=== PATIENT | female | born 1960 | race African-American/Black ===

== ENCOUNTER 2018-02-03 05:58 | Day surgery (SDC) | payer MEDICAID, MEDICARE ==
--- NOTE | 2018-02-02 09:16 | Pre-Procedure Note/Attestation ---
Pre-Procedure Note/Attestation Complete Prior to Procedure Planned Procedure: right Procedure Narrative: phaco with IOL Indications for Procedure Pre-Operative Diagnosis: cataract Attestation I attest that I discussed the nature of the procedure; its benefits; risks and complications; and alternatives (and the risks and benefits of such alternatives ), prior to the procedure, with the patient (or the patient's legal human resources hr representative). I attest that, if there was a reasonable possibility of needing a blood transfusion, the patient (or the patient's legal human resources hr representative) was given the [facility] standardized written summary, pursuant to the [place] Blood Safety Act ([place] Health and Safety Code # 1645, as amended). I attest that I re-evaluated the patient just prior to the surgery and that there has been no change in the patient's H&P, except as documented below: COREY CUELLAR February 02, 2018 09:16
--- NOTE | 2018-02-02 09:18 | Opthalmology H&P ---
Ophthalmology H&P H&P Chief Complaint: decreased vision in right eye HPI Vision Affects Ability to: read, focus/use eyes together, manage personal affairs HPI Narrative blurry vision Exam Visual Acuity: OD: CF OS: 20/50 Tension: OD: 14 OS: 14 Eye Exam: normal OU: external exam, palpebral fissure-width, marginal reflex distance, levator function, corneas, anterior chambers, fundus exam; findings: lens - OD: PSC OS: PSC Assessment/Plan Diagnosis: (1) Posterior subcapsular age-related cataract of right eye Treatment Plan: cataract extraction w/ lens implant Goals of Treatment: improvement of vision, enhance quality of life Attestation Attestation The risks and benefits of the surgery as well as alternative procedures were explained to the patient in detail. COREY CUELLAR February 02, 2018 09:18
[~2018-02-03] VITALS: Ht 167.6 cm; Wt 89.8 kg
[2018-02-03] VITALS (8 sets, daily range): BP systolic 120–135; BP diastolic 69–94
[~2018-02-03 05:58] MED LIST: HYDROCHLOROTHIA25 MG ORAL; MYCOPHENOLATE250 MG PO; QVAR7.3 G2 IH; VENTOLIN HFA18 GM INH
[2018-02-03] MEDS ORDERED: Maxitrol Opth Oint 3.5gm ONE (06:00)
[2018-02-03] MEDS ORDERED: Dexamethasone 4mg/ml vial ONE (06:00)
[2018-02-03] MEDS ORDERED: Pred Forte 1% Opth Susp 1ml ONE (06:00)
[2018-02-03] MEDS ORDERED: Akten 3.5% 1ml Btl RIGHT EYE ONE (07:00)
[2018-02-03] MEDS ORDERED: Proparacaine 0.5% Opth Soln 15ml RIGHT EYE SCH (07:00)
[2018-02-03] MEDS ORDERED: Tetracaine 0.5% Opth 4ml Soln RIGHT EYE SCH (07:00)
[2018-02-03] MEDS: Phenylephrine 10% Opth Soln 5ml RIGHT EYE SCH ×3 (07:27→07:40)
[2018-02-03] MEDS: Tobramycin Op Soln 0.3% 5ml RIGHT EYE SCH ×2 (07:28→07:36)
[2018-02-03] MEDS: Diclofenac Sod 0.1% Op Soln RIGHT EYE SCH ×3 (07:28→07:40)
[2018-02-03] MEDS: Tropicamide 1% Opth 15ml Soln RIGHT EYE SCH ×3 (07:28→07:39)
[2018-02-03] MEDS: Cyclopentolate 1% Opth Sol 2ml RIGHT EYE SCH ×3 (07:29→07:39)
[2018-02-03] MEDS ORDERED: NS Irrig 1000ml ONE (07:30)
[2018-02-03] MEDS ORDERED: LR 1000ml ONE (07:30)
[2018-02-03] MEDS ORDERED: Sterile Water Irrig 1000ml IRRIG ONE (07:30)
--- NOTE | 2018-02-03 07:38 | Anethesia Preoperative Eval ---
Anesthesia Pre-op PMH/ROS General Date of Evaluation: February 03, 2018 Time of Evaluation: 07:20 Anesthesiologist: ASA Score: ASA 2 Mallampati Score Class I : Soft palate, uvula, fauces, pillars visible Class II: Soft palate, uvula, fauces visible Class III: Soft palate, base of uvula visible Class IV: Only hard plate visible Mallampati Classification: Class II Surgeon: dailson Diagnosis: cataract Surgical Procedure: cataract extraction iol implant right eye Anesthesia History: none Family History: no anesthesia problems Allergies: Coded Allergies: No Known Allergies (Unverified , 02/02/18) Medications: see eMAR Past Medical History Cardiovascular: Reports: HTN Pulmonary: Denies: asthma, COPD, JAYLA, other Gastrointestinal/Genitourinary: Denies: GERD, CRI, ESRD, other Neurologic/Psychiatric: Denies: dementia, CVA, depression/anxiety, TIA, other Endocrine: Denies: DM, hypothyroidism, steroids, other HEENT: Reports: cataract (R) Hematology/Immune: Denies: anemia, DVT, bleeding disorder, other Musculoskeletal/Integumentary: Denies: OA, RA, DJD, DDD, edema, other PSxH Narrative: left mastectomy, orif left wrist Anesthesia Pre-op Phys. Exam Physician Exam Constitutional: NAD Cardiovascular: RRR Respiratory: CTA Gastrointestinal: S/NT/ND Airway Exam Mallampati Score: Class II MO: full ROM: full Teeth: other - crown Dentures: no upper, no lower Anesthesia Pre-op A/P Risk Assessment & Plan Assessment: ASA 2, okay to proceed Plan: MAC Status Change Before Surgery: No Pre-Antibiotics Drug: none Page Olivares M.D. February 03, 2018 07:38
[2018-02-03] MEDS ORDERED: Midazolam 2mg/2ml Inj ONE (07:48)
[2018-02-03] MEDS ORDERED: LR 1000ml 1,000 ML IVLG SCH (08:05)
[2018-02-03] MEDS ORDERED: EPINEPHrine 1mg/1ml Amp ONE (08:08)
[2018-02-03] MEDS ORDERED: Pilocarpine 2% Opth 15ml Soln ONE (08:08)
[2018-02-03] MEDS ORDERED: Povidone-Iodine 5% opth solution ONE (08:09)
[2018-02-03] MEDS ORDERED: Sodium Hyaluronate 14 mg/ml 0.85ml ONE (08:09)
[2018-02-03] MEDS ORDERED: BSS 500ml btl ONE (08:09)
[2018-02-03] MEDS ORDERED: BSS 15ml BTL ONE (08:09)
[2018-02-03] MEDS ORDERED: fentaNYL 100 mcg/2 mL IV PRN (08:15)
[2018-02-03] MEDS ORDERED: DiphenhydrAMINE 50mg/ml Inj IVP PRN (08:15)
--- NOTE | 2018-02-03 08:31 | Immediate Post-Op Evaluation ---
Immediate Post-Op Evalulation Immediate Post-Op Evalulation Procedure: cataract extraction iol implant right eye Date of Evaluation: February 03, 2018 Time of Evaluation: 08:20 IV Fluids: LR 50ml Blood Products: 0 Estimated Blood Loss: 0 Urinary Output: 0 Blood Pressure Systolic: 131 Blood Pressure Diastolic: 93 Pulse Rate: 81 Respiratory Rate: 18 O2 Sat by Pulse Oximetry: 97 Temperature (Fahrenheit): 99 Pain Score (1-10): 0 Nausea: No Vomiting: No Complications none Patient Status: awake, patent, none Hydration Status: adequate Drug: none Page Olivares M.D. February 03, 2018 08:31
--- NOTE | 2018-02-03 08:37 | 48 Hour Post Anesthesia Eval ---
Post Anesthesia Evaluation Procedure: cataract extraction iol implant right eye Date of Evaluation: February 03, 2018 Time of Evaluation: 08:30 Blood Pressure Systolic: 128 0: 91 Pulse Rate: 74 Respiratory Rate: 16 Temperature (Fahrenheit): 99 O2 Sat by Pulse Oximetry: 94 Airway: patent Nausea: No Vomiting: No If pain is > 6 Comment: 0 Hydration Status: adequate Mental Status/LOC: patient returned to baseline Post-Anesthesia Complications: none Follow-up care needed: ready to discharge Page Olivares M.D. February 03, 2018 08:37
--- NOTE | 2018-02-04 11:15 | Brief Operative Note ---
Immediate Post Operative Note Operative Note Chief Complaint: blurry vision Pre-op Diagnosis: cataract, OD Procedure: Phaco with IOL, OD Post-op Diagnosis: Pseudophakia Post-op Diagnosis: same as pre-op Findings: consistent w/pre-op dx studies Surgeon: Stephanie Anesthesiologist: Anesthesia: MAC Specimen: none Complications: none Fluids: LR Estimated Blood Loss: none Drains: none Implant(s) used?: Yes COREY CUELLAR February 04, 2018 11:15
--- NOTE | 2018-02-04 11:16 | Operative Note - PDOC ---
Operative Note Operative Note Date of Operation/Procedure: February 03, 2018 Chief Complaint: blurry vision Pre-op Diagnosis: cataract, OD Procedure: Phaco with IOL, OD Post-op Diagnosis: Pseudophakia Post-op Diagnosis: same as pre-op Operative Findings: consistent w/pre-op dx studies Surgeon: Stephanie Anesthesiologist: Anesthesia: MAC Specimen: none Complications: none Fluids: LR Estimated Blood Loss: none Drains: none Implant(s) used?: Yes Indications for Procedure cataract Description of Procedure This patient has been complaining visually significant cataract in the affected eye with the best corrected visual acuity under moderate glare conditions worse. The patient complains of difficulties with glare in performing activities of daily living and wants to manage personal affairs with comfort and accuracy and see well enough to move with safety at home and outdoors. The risks, benefits and alternatives of the procedure were discussed with the patient in the office prior to scheduling surgery. All questions from the patient were answered after the surgical procedure was explained in detail. The risks of the procedure as explained to the patient include, but are not limited to, pain, infection, bleeding, loss of vision, retinal detachment, need for further surgery, loss of lens nucleus, double vision, etc. Alternative procedures were discussed which include, to do nothing or seek a second opinion. Informed consent for this procedure was obtained from the patient. The patient was referred to a primary care physician for a cardiopulmonary clearance prior to surgery, after proper evaluation was done patient was properly scheduled for outpatient surgery. The patient was brought to the operating room where the anesthesiologist established I.V. lines and cardiac monitoring leads. Mild intravenous sedation was administered. The patient was then prepared with a 5% solution of povidone -iodine to the conjunctival fornix and lashes, and a 5% solution of povidone- iodine to the lids and periorbital skin. The patient was then draped in the usual sterile fashion. A lid speculum was then placed in the operative eye. A keratome blade was then used to create a biplanar incision into the anterior chamber. Viscoelastics was then instilled into the anterior chamber. A capsulorrhexis was then fashioned with an utrata forceps. The lens nucleus was hydrodissected and hydrodelineated with a G 27 Cannula. Paracentesis incision was made at 3 o'clock with sharp blade. The phacoemulsification unit, after being properly adjusted and tested, was then used to emulsify the nucleus followed by aspiration and irrigation of residual cortical material with the I AND A unit.. Healon was then instilled into the anterior chamber. The corneal wound was then enlarged to the size of the optic with the manan keratome blade. The intraocular lens was then inspected for right power and size and thought to be satisfactory. Then the lens was gently placed in the capsular bag. Positioning within the capsular bag was confirmed by direct visualization. Optic centration was accomplished with a Sinskey hook. Viscoelastics was removed from the anterior chamber using the irrigation and aspiration unit. The corneal wound was then tested for leaks and none were found. The lid speculum were then removed. Sponge and needle counts were correct. An eye patch and shield were placed over the operative eye. The patient was taken to the recovery room in stable condition. There were no complications. The patient tolerated the procedure well. The patient was then transferred to the ambulatory surgery unit in stable and satisfactory condition , was given detailed written instructions and asked to follow up in the office the next day. COREY CUELLAR February 04, 2018 11:16
== END 2018-02-03 10:10 | disposition home or self-care (01) ==
LOC: SUR 05:58
DX: H25.041 Posterior subcapsular polar age-related cataract, right eye (principal); I10 Essential (primary) hypertension; J84.9 Interstitial pulmonary disease, unspecified; I70.0 Atherosclerosis of aorta; M19.90 Unspecified osteoarthritis, unspecified site; Z82.49 Family history of ischemic heart disease and other diseases of the circulatory system; Z80.9 Family history of malignant neoplasm, unspecified; Z90.12 Acquired absence of left breast and nipple
CPT/HCPCS: 66984; J0171; J1100; J3370; J7120; V2632; Z7512; 94003; 94150; J2250

== ENCOUNTER 2018-05-12 05:36 | Day surgery (SDC) | payer MEDICAID ==
--- NOTE | 2018-05-09 15:13 | Pre-Procedure Note/Attestation ---
Pre-Procedure Note/Attestation Complete Prior to Procedure Planned Procedure: left Procedure Narrative: phaco with IOL Indications for Procedure Pre-Operative Diagnosis: cataract Attestation I attest that I discussed the nature of the procedure; its benefits; risks and complications; and alternatives (and the risks and benefits of such alternatives ), prior to the procedure, with the patient (or the patient's legal specialty sales representative). I attest that, if there was a reasonable possibility of needing a blood transfusion, the patient (or the patient's legal specialty sales representative) was given the [facility] standardized written summary, pursuant to the [place] Blood Safety Act ([place] Health and Safety Code # 1645, as amended). I attest that I re-evaluated the patient just prior to the surgery and that there has been no change in the patient's H&P, except as documented below: COREY CUELLAR May 09, 2018 15:13
--- NOTE | 2018-05-09 15:15 | Opthalmology H&P ---
Ophthalmology H&P H&P Chief Complaint: decreased vision in left eye HPI Vision Affects Ability to: read, focus/use eyes together, manage personal affairs HPI Narrative blurry vision Exam Visual Acuity: OD: 20/20 os:20/80 Tension: od: 16 os: 17 Eye Exam: normal OU: external exam, palpebral fissure-width, marginal reflex distance, levator function, corneas, anterior chambers, fundus exam; findings: lens - od: iol os: PSC Assessment/Plan Diagnosis: (1) Posterior subcapsular age-related cataract of left eye Treatment Plan: cataract extraction w/ lens implant Goals of Treatment: improvement of vision, enhance quality of life Attestation Attestation The risks and benefits of the surgery as well as alternative procedures were explained to the patient in detail. COREY CUELLAR May 09, 2018 15:15
[~2018-05-12] VITALS: Ht 167.6 cm; Wt 86.2 kg
[2018-05-12] VITALS (7 sets, daily range): BP systolic 103–129; BP diastolic 62–88
[2018-05-12] MEDS: Tobramycin Op Soln 0.3% 5ml LEFT EYE SCH ×3 (06:25→06:42)
[2018-05-12] MEDS: Cyclopentolate 1% Opth Sol 2ml LEFT EYE SCH ×3 (06:25→06:42)
[2018-05-12] MEDS: Diclofenac Sod 0.1% Op Soln LEFT EYE SCH ×3 (06:25→06:42)
[2018-05-12] MEDS: Tropicamide 1% Opth 15ml Soln LEFT EYE SCH ×3 (06:25→06:42)
[2018-05-12] MEDS: Phenylephrine 10% Opth Soln 5ml LEFT EYE SCH ×2 (06:34→06:42)
[2018-05-12] MEDS ORDERED: Pilocarpine 2% Opth 15ml Soln ONE (07:00)
[2018-05-12] MEDS ORDERED: Tetracaine 0.5% Opth 4ml Soln LEFT EYE ONE (07:00)
[2018-05-12] MEDS ORDERED: Maxitrol Opth Oint 3.5gm ONE (07:00)
[2018-05-12] MEDS ORDERED: Povidone-Iodine 5% opth solution ONE ×2 (07:00→07:35)
[2018-05-12] MEDS ORDERED: Proparacaine 0.5% Opth Soln 15ml LEFT EYE ONE (07:00)
[2018-05-12] MEDS ORDERED: Dexamethasone 4mg/ml vial ONE (07:00)
[2018-05-12] MEDS ORDERED: Pred Forte 1% Opth Susp 1ml ONE (07:00)
[2018-05-12] MEDS ORDERED: Akten 3.5% 1ml Btl LEFT EYE ONE (07:00)
[2018-05-12] MEDS ORDERED: EPINEPHrine 1mg/1ml Amp ONE (07:34)
[2018-05-12] MEDS ORDERED: Carbachol 0.01% Op Soln 1.5ml vial ONE (07:34)
[2018-05-12] MEDS ORDERED: Lidocaine 2% MPF 5ml Vial INJ ONE ×2 (07:34→07:37)
[2018-05-12] MEDS ORDERED: acetaZOLAMIDE 500mg Inj ONE (07:34)
[2018-05-12] MEDS ORDERED: Sodium Hyaluronate 14 mg/ml 0.85ml ONE (07:35)
[2018-05-12] MEDS ORDERED: BSS 500ml btl ONE (07:35)
[2018-05-12] MEDS ORDERED: BSS 15ml BTL ONE (07:35)
[2018-05-12] MEDS ORDERED: LR 1000ml ONE (07:45)
[2018-05-12] MEDS ORDERED: Propofol 200mg/20ml IV ONE (07:49)
[2018-05-12] MEDS ORDERED: Lidocaine 1% MPF 10mg/ml 5ml ONE (07:49)
[2018-05-12] MEDS ORDERED: Midazolam 2mg/2ml Inj ONE (07:49)
--- NOTE | 2018-05-12 07:57 | Anethesia Preoperative Eval ---
Anesthesia Pre-op PMH/ROS General Date of Evaluation: May 12, 2018 Time of Evaluation: 07:30 Anesthesiologist: Yumiko ASA Score: ASA 3 Mallampati Score Class I : Soft palate, uvula, fauces, pillars visible Class II: Soft palate, uvula, fauces visible Class III: Soft palate, base of uvula visible Class IV: Only hard plate visible Mallampati Classification: Class II Surgeon: Stephanie Diagnosis: cataract Surgical Procedure: cataract extraction IOL implantation Anesthesia History: none Social History: current smoker Family History: no anesthesia problems Allergies: Coded Allergies: No Known Allergies (Unverified , 02/02/18) Medications: see eMAR Past Medical History Cardiovascular: Reports: HTN Pulmonary: Reports: other - smoking Endocrine: Reports: DM HEENT: Reports: cataract (L) Other: obesity Anesthesia Pre-op Phys. Exam Physician Exam Last Vital Signs Date Time Temp Pulse Resp B/P (MAP) Pulse Ox O2 Delivery O2 Flow Rate FiO2 05/12/18 06:33 97.5 66 16 103/62 (76) 93 97.5 05/12/18 06:28 Room Air Constitutional: NAD Cardiovascular: RRR Respiratory: CTA Airway Exam Mallampati Score: Class I MO: full ROM: full Anesthesia Pre-op A/P Risk Assessment & Plan Assessment: ASA 3 Plan: Emy Cordero M.D. May 12, 2018 07:57
[2018-05-12] MEDS ORDERED: Glycopyrrolate 0.2mg/ml 1ml Vial ONE (08:00)
--- NOTE | 2018-05-12 08:36 | Immediate Post-Op Evaluation ---
Immediate Post-Op Evalulation Immediate Post-Op Evalulation Procedure: LEFT CATARAT EXTRACTION IOL IMPLANTATION Date of Evaluation: May 12, 2018 Time of Evaluation: 08:30 IV Fluids: 500 Blood Products: NONE Estimated Blood Loss: NONE Urinary Output: NOT RECORED Blood Pressure Systolic: 120 Blood Pressure Diastolic: 65 Pulse Rate: 64 Respiratory Rate: 20 O2 Sat by Pulse Oximetry: 100 Temperature (Fahrenheit): 98.8 Pain Score (1-10): 2 Nausea: No Vomiting: No Complications NONE Patient Status: awake Hydration Status: adequate Emy Calderon M.D. May 12, 2018 08:36
--- NOTE | 2018-05-12 08:43 | 48 Hour Post Anesthesia Eval ---
Post Anesthesia Evaluation Procedure: LEFT CATARAT EXTRACTION IOL IMPLANTATION Date of Evaluation: May 12, 2018 Time of Evaluation: 08:42 Blood Pressure Systolic: 120 0: 69 Pulse Rate: 63 Respiratory Rate: 20 Temperature (Fahrenheit): 98.5 O2 Sat by Pulse Oximetry: 99 Airway: patent Nausea: No Vomiting: No Pain Intensity: 1 Hydration Status: adequate Mental Status/LOC: patient returned to baseline Follow-up care needed: ready to discharge Emy Calderon M.D. May 12, 2018 08:43
[2018-05-12] MEDS ORDERED: fentaNYL 100 mcg/2 mL IV PRN (08:45)
--- NOTE | 2018-05-12 11:12 | Brief Operative Note ---
Immediate Post Operative Note Operative Note Chief Complaint: blurry vision Pre-op Diagnosis: cataract, OS Procedure: phaco with IOL, OS Post-op Diagnosis: pseudophakia Post-op Diagnosis: same as pre-op Findings: consistent w/pre-op dx studies Surgeon: Stephanie Anesthesiologist: Yumiko Anesthesia: MAC Specimen: none Complications: none Condition: stable Fluids: LR Estimated Blood Loss: none Drains: none Implant(s) used?: Yes COREY CUELLAR May 12, 2018 11:12
--- NOTE | 2018-05-12 11:13 | Operative Note - PDOC ---
Operative Note Operative Note Date of Operation/Procedure: May 12, 2018 Chief Complaint: blurry vision Pre-op Diagnosis: cataract, OS Procedure: phaco with IOL, OS Post-op Diagnosis: pseudophakia Post-op Diagnosis: same as pre-op Operative Findings: consistent w/pre-op dx studies Surgeon: Stephanie Anesthesiologist: Yumiko Anesthesia: MAC Specimen: none Complications: none Condition: stable Fluids: LR Estimated Blood Loss: none Drains: none Implant(s) used?: Yes Indications for Procedure cataract Description of Procedure This patient has been complaining visually significant cataract in the affected eye with the best corrected visual acuity under moderate glare conditions worse. The patient complains of difficulties with glare in performing activities of daily living and wants to manage personal affairs with comfort and accuracy and see well enough to move with safety at home and outdoors. The risks, benefits and alternatives of the procedure were discussed with the patient in the office prior to scheduling surgery. All questions from the patient were answered after the surgical procedure was explained in detail. The risks of the procedure as explained to the patient include, but are not limited to, pain, infection, bleeding, loss of vision, retinal detachment, need for further surgery, loss of lens nucleus, double vision, etc. Alternative procedures were discussed which include, to do nothing or seek a second opinion. Informed consent for this procedure was obtained from the patient. The patient was referred to a primary care physician for a cardiopulmonary clearance prior to surgery, after proper evaluation was done patient was properly scheduled for outpatient surgery. The patient was brought to the operating room where the anesthesiologist established I.V. lines and cardiac monitoring leads. Mild intravenous sedation was administered. The patient was then prepared with a 5% solution of povidone -iodine to the conjunctival fornix and lashes, and a 5% solution of povidone- iodine to the lids and periorbital skin. The patient was then draped in the usual sterile fashion. A lid speculum was then placed in the operative eye. A keratome blade was then used to create a biplanar incision into the anterior chamber. Viscoelastics was then instilled into the anterior chamber. A capsulorrhexis was then fashioned with an utrata forceps and a BSS and a G 27 cannula was used to hydrodissect and hydro delineate the lens nucleus. Paracentesis incision was made at 3 o'clock with sharp blade. The phacoemulsification unit, after being properly adjusted and tested, was then used to emulsify the nucleus followed by aspiration and irrigation of residual cortical material. Healon was then instilled into the anterior chamber. The corneal wound was then enlarged to the size of the optic with the manan keratome blade. The intraocular lens was then inspected for right power and size and thought to be satisfactory. Then the lens was gently placed in the capsular bag. Positioning within the capsular bag was confirmed by direct visualization. Optic centration was accomplished with a Sinskey hook. Viscoelastics was removed from the anterior chamber using the irrigation and aspiration unit. The corneal wound was then tested for leaks and none were found. The lid speculum were then removed. Sponge and needle counts were correct. An eye patch and shield were placed over the operative eye. The patient was taken to the recovery room in stable condition. There were no complications. The patient tolerated the procedure well. The patient was then transferred to the ambulatory surgery unit in stable and satisfactory condition , was given detailed written instructions and asked to follow up in the office the next day. COREY CUELLAR May 12, 2018 11:13
== END 2018-05-12 10:20 | disposition home or self-care (01) ==
LOC: SUR 05:36
DX: H26.9 Unspecified cataract (principal); J45.909 Unspecified asthma, uncomplicated; M19.90 Unspecified osteoarthritis, unspecified site; I10 Essential (primary) hypertension; E11.9 Type 2 diabetes mellitus without complications; E66.9 Obesity, unspecified; Z68.30 Body mass index [BMI] 30.0-30.9, adult; I70.0 Atherosclerosis of aorta; R94.31 Abnormal electrocardiogram [ECG] [EKG]; F17.200 Nicotine dependence, unspecified, uncomplicated; Z82.49 Family history of ischemic heart disease and other diseases of the circulatory system
CPT/HCPCS: 66984; 82962; J0171; J1100; J2250; J2704; J3010; J3370; J7120; V2632; Z7512; 94003; 94150